=== PATIENT | female | born 1980 | race Caucasian/White ===

== ENCOUNTER 2017-04-09 15:55 | Emergency (ER) | payer MEDICAID ==
[~2017-04-09] VITALS: Ht 172.7 cm; Wt 74.7 kg
[~2017-04-09 15:55] MED LIST: ALPR2TAB2 PO; METR375C; PARO10TA56 PO; PROM25TA10 PO; QUET300T5 PO
[2017-04-09 16:17] VITALS: BP 126/89
[2017-04-09] MEDS ORDERED: ALBUTEROL/IPRATROPIUM 2.5MG/0.5MG, 3 ML ONE (17:16)
[2017-04-09] MEDS ORDERED: ALBUTEROL/IPRATROPIUM 2.5MG/0.5MG, 3 ML NPPB ONE (17:30)
[2017-04-09] MEDS ORDERED: IBUPROFEN 200 MG TABLET ONE (17:51)
[2017-04-09] MEDS ORDERED: IBUPROFEN 200 MG TABLET PO ONE (18:00)
== END 2017-04-09 17:57 | disposition home or self-care (01) ==
LOC: ED 16:39
DX: J18.1 Lobar pneumonia, unspecified organism (principal); H65.01 Acute serous otitis media, right ear; F41.9 Anxiety disorder, unspecified
CPT/HCPCS: 71046; 94640; 99284; J7512